=== PATIENT | female | born 1995 | race Caucasian/White ===

== ENCOUNTER 2020-06-16 16:38 | Emergency (ER) | payer MEDICAID, SELFPAY ==
[2020-06-16 16:55] VITALS: BP 153/104; PULSE 135; RESP 24; TEMP 37.1; O2SAT 96; BMI 20.5
[2020-06-16 16:58] VITALS: BP 153/104; PULSE 135; RESP 24; TEMP 37.1; O2SAT 96
--- NOTE | 2020-06-16 17:00 | PC.NURSE ---
Pt reports that she is on methadone maintenance, uses [facility] in [place], dose not verified at this time, clinic is closed, to be verified when they reopen.
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
--- NOTE | 2020-06-16 18:13 | PC.NURSE ---
Pt's mother Sydnie called and said that PT has been caling her making statements of they're going to kill me and that she has been given gas poisoning . Sydnie said that PT has never been this bad, that until recently has been doing well in college. 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 Sydnie is available to give information as needed [phone]
--- NOTE | 2020-06-16 19:13 | PC.NURSE ---
Report received. PT is using the phone. Calm and cooperative. PT just spoke with CARE team. PT is ready to be discharged.
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
== END 2020-06-16 19:43 | disposition home or self-care (01) ==
PROVIDERS: Emergency Provider Emergency Medicine Emergency Medical Services
DX: F41.1 Generalized anxiety disorder (principal); F43.0 Acute stress reaction; F14.10 Cocaine abuse, uncomplicated; F17.200 Nicotine dependence, unspecified, uncomplicated
CPT/HCPCS: 99284; 99285